=== PATIENT | male | born 1935 | race Caucasian/White ===

== ENCOUNTER 2024-11-24 18:57 | Emergency (ER) | payer OTHER ==
[~2024-11-24] VITALS: Ht 157.5 cm; Wt 81.8 kg
[2024-11-24 19:07] VITALS: TEMP 97.2
[2024-11-24] MEDS: LIDOcaine 1% W/epiNEPHrine 1:100,000 20ml vial SQ ONE (21:43)
[2024-11-24] MEDS ORDERED: CEPH-585 PO (21:47)
--- NOTE | 2024-11-24 21:47 | Physician Documentation ---
History of Present Illness ~ Chief Complaint: Head Injury Stated Complaint: HEAD WOUND Time Seen by MD: 20:07 OK to notify your PCP?: Yes Source: patient, family Mode of Arrival: POV Exam Limitations: no limitations HPI Chief Complaint: Forehead laceration Caveat: None Independent Historians: Family History of Present Illness: Patient is an 89-year-old man brought in by family for laceration to the forehead. Patient is traveling. They are from [facility]. The patient struck his head on the edge of a shelf resulting in a 3-1/2 cm laceration to the center of the forehead. This occurred yesterday at 2:00 p.m.. This is much greater than 24 hours. Patient denies any other injuries. Loss of consciousness. No nausea or vomiting. Patient is not on blood thinners but is on baby aspirin. Review of systems: All systems were reviewed and are negative except for what is indicated in the history of present illness. Past Medical History: Hypertension Past Surgical History: Noncontributory Social History: No tobacco use, no alcohol use, no drug use, Medications: Reviewed as documented Nursing Notes Allergies: Reviewed as documented in Nursing Notes Tetanus within 5 years?: No (Didnt ask) Medication Reconciliation Allergies: Uncoded Allergies: SULFA (Allergy, Unknown, 11/24/24) Scheduled Cephalexin*Monohydrate* (Keflex*), 1 CAP PO Q6H Review of Systems All Other Systems at this time: Reviewed and Negative ROS Patient denies any other acute symptoms other than above. All other systems are negative Physical Exam Vital Signs: RN Vital Signs have been reviewed: Yes, Temperature: 97.2, Source: Temporal, Heart Rate: 60, Respiratory Rate: 16, BP: 193/66, Pulse Oximetry: 95, Weight: 81.820 Oxygen Flow Rate: 0 Pulse Oximetry Reflects: adequate oxygenation Physical Exam General Appearance: No distress HEENT: Normal OP, moist oral mucosa, PERRL, EOMI, center forehead horizontal laceration 3.5 cm through the subcutaneous tissue Neck: supple, normal ROM, trachea midline Pulmonary: No respiratory distress, CTA, BS equal Cardiac: RRR, no murmur, rub or gallop, Extremities: normal ROM, no swelling, non-tender Skin: intact, dry, warm, no rashes Neuro: AAOx3, speech is clear, no focal motor weakness Procedures Laceration/Wound Repair Laceration/Wound Repair : Location: Forehead Length (cm): 3.5 Anesthesia: Lidocaine w/ Epi Volume Anesthetic (mls): 4 Prep: irrigated by nurse Irrigated w/ Saline (mls): 80 Foreign Body: not identified Repaired: skin Wound Repaired With: sutures Suture Size/Type: 5-0 Number of Superficial Sutures: 5 Layer Closure?: No Dressing Applied: simple Tolerated Procedure Well?: yes, no complications Procedure Note Loose approximation was performed in case of infection and because of the prolonged period of time from injury. Progress Results/Orders Results/Orders Completed Orders - KUNAL JOE MD Lidocaine 1% W/Epi 1:100,000 (Xylocaine (11/24/24 21:10) Cephalexin Capsule (Keflex Capsule) (11/24/24 21:55) Tetanus/Pertuss/Diph Acell/Pf (Boostrix (11/24/24 21:55) Medications Received in ER Medications (Trade) Dose Ordered Sig/Peterson Route PRN Reason Start Time Stop Time Status Last Admin Dose Admin (Keflex capsule) 500 mg ONCE ONCE PO 11/24/24 21:55 11/24/24 21:56 DC 11/24/24 22:31 500 MG (Boostrix vaccine syringe) 0.5 ml ONCE ONCE IMVAC 11/24/24 21:55 11/24/24 21:56 DC 11/24/24 22:33 0.5 ML Vital Signs 11/24/24 11/24/24 11/24/24 11/24/24 19:07 19:47 21:43 22:37 Temp 97.2 Pulse 60 60 60 59 Resp 15 16 16 16 B/P (MAP) 149/47 151/55 (87) 193/66 (108) 162/60 Pulse Ox 97 96 95 98 O2 Flow Rate 0 0 Medical Decision Making Findings Differential diagnosis includes but is not limited to: Traumatic brain injury, minor closed head injury, forehead laceration Emergency department course/medical decision-making: Patient presents after having a minor closed head injury resulting in a forehead laceration. Patient is neurologically intact. Patient is not on blood thinners and does not require imaging. Despite the laceration being greater than 24 hours the patient acquire some closure so this will he will not get infected. The wound appears clean. Loose approximation is obtained by placing five interrupted sutures. Dressing was applied. Patient was given a tetanus booster and prophylactic antibiotics, Keflex for five days. Patient is given instructions to have the sutures removed in 11-12 days. Patient is stable for discharge. Departure Time of Disposition: 21:45 Impression: Primary Impression: Forehead, 3-1/2 cm simple repair Additional Impression: Minor closed head injury Condition: Improved Discharge Instructions: Facial Laceration, [id number] Additional Instructions: FOLLOW UP WITH YOUR PRIMARY CARE DOCTOR OR CLINIC FOR SUTURE REMOVAL IN 11-12 DAYS. KEEP THE WOUND DRY AND REPLACE ANY WET DRESSINGS IMMEDIATELY Prescriptions Cephalexin*Monohydrate* (Keflex*) 500 Mg Capsule 1 CAP PO Q6H, #20 CAP Prov: KUNAL JOE MD 11/24/24 Education Educated: Patient, Family Educated regarding: diagnosis, treatment, need for follow up Signature Scribe Signature: No scribe Attestation: No scribe KUNAL JOE MD Nov 24, 2024 21:47
[2024-11-24] MEDS: TETanus/Pertussis (Acell)/Diphther VAC/PF (Tdap-Adult) 0.5ml syringe IMVAC ONE (22:33)
[2024-11-24 22:37] VITALS: BP 162/60; PULSE 59; RESP 16; O2SAT 98
== END 2024-11-24 22:38 | disposition home or self-care (01) ==
LOC: ER 18:58
DX: S01.81XA Laceration without foreign body of other part of head, initial encounter (principal); I10 Essential (primary) hypertension; Z88.2 Allergy status to sulfonamides; X58.XXXA Exposure to other specified factors, initial encounter; Y93.89 Activity, other specified; Y92.89 Other specified places as the place of occurrence of the external cause; Y99.8 Other external cause status
CPT/HCPCS: 12013; 90471; 90715; 99283